=== PATIENT | female | born 1975 | race Caucasian/White ===

== ENCOUNTER 2018-05-28 13:46 | Emergency (ER) | payer OTHER ==
[2018-05-28 14:12] VITALS: BP 157/81; PULSE 126; RESP 20; TEMP 98.6; O2SAT 100
[2018-05-28 14:33] LABS: HCG,QUALITATIVE URINE NEGATIVE (NEGATIVE)
[2018-05-28 14:43] LABS: SQUAMOUS EPITHIAL 1 /hpf (0-5); URINE BILIRUBIN NEGATIVE (NEGATIVE); URINE BLOOD NEGATIVE (NEGATIVE); URINE CLARITY Hazy (Clear); URINE COLOR Amber (YELLOW); URINE GLUCOSE (UA) NORMAL (Normal); URINE HYALINE CAST >20 /lpf (0-2); URINE LEUKOCYTE ESTERASE NEG Leu/uL (Negative); URINE PROTEIN 2+ mg/dL (NEGATIVE); URINE UROBILINOGEN NORMAL mg/dL (0.2-1.0)
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
== END 2018-05-28 17:12 | disposition left against medical advice (07) ==
LOC: C.ER 13:46
DX: T76.21XA Adult sexual abuse, suspected, initial encounter (principal)